=== PATIENT | female | born 1970 | race Native Hawaiian/Other Pacific Islander ===

== ENCOUNTER 2019-03-14 11:44 | Emergency (ER) | payer OTHER ==
[2019-03-14 12:20] VITALS: BP 181/109
--- NOTE | 2019-03-14 12:27 | Emergency Department Report ---
Blank Doc - Documentation Documentation: 48-year-old female that presents with urinary frequency, dehydration, and fati erica. Has not been taking Metformin. This initial assessment/diagnostic orders/clinical plan/treatment(s) is/are subject to change based on patient's health status, clinical progression and re-assessment by fellow clinical providers in the ED. Further treatment and workup at subsequent clinical providers discretion. Patient/guardians urged not to elope from the ED as their condition may be serious if not clinically assessed and managed. Initial orders include: 1- Patient sent to [facility] for further evaluation and treatment 2- labs 3- UA
[2019-03-14 13:56] LABS: Basophils # (Auto) 0.1 K/mm3 (0.0-0.1); Basophils % (Auto) 0.7 % (0.0-1.8); Eosinophils # (Auto) 0.1 K/mm3 (0.0-0.4); Eosinophils % (Auto) 1.4 % (0.0-4.3); Hematocrit 45.7 % (30.3-42.9); Lymphocytes # (Auto) 3.1 K/mm3 (1.2-5.4); Lymphocytes % (Auto) 38.6 % (13.4-35.0); Mean Corpuscular HGB Conc 33 % (30-34); Mean Corpuscular Volume 84 fl (79-97); Monocytes # (Auto) 0.4 K/mm3 (0.0-0.8); Monocytes % (Auto) 4.7 % (0.0-7.3); Platelet Count 261 K/mm3 (140-440); Red Blood Count 5.45 M/mm3 (3.65-5.03); Red Cell Distribution Width 13.8 % (13.2-15.2)
--- NOTE | 2019-03-14 14:00 | Emergency Department Report ---
ED General Adult HPI - General Chief complaint: Hyperglycemia Stated complaint: HBP/DIZZY/REF BY DOCTER Time Seen by Provider: 03/14/19 12:25 Source: patient Mode of arrival: Ambulatory Limitations: No Limitations - History of Present Illness Initial comments: Mrs. Hamilton is a 48 yo female who presents with fatigue, thirst for several weaks. Feels drained. Referred from PCP's office for BG [id number]. Stopped taking medication for DM and HTN in November because she was tired of taking pills. PCP Julia Guadalupe Chaffee -: Gradual, week(s) (3) Severity scale (0 -10): 0 Consistency: constant Improves with: none Worsens with: none Associated Symptoms: malaise Treatments Prior to Arrival: none - Related Data Previous Rx's Medication Instructions Recorded Last Taken Type Lisinopril/Hydrochlorothiazide 1 tab PO QDAY 90 Days #90 tab 03/14/19 Unknown Rx [Zestoretic 20-25 mg] metFORMIN [Glucophage] 500 mg PO BID 90 Days #180 tablet 03/14/19 Unknown Rx Allergies Allergy/AdvReac Type Severity Reaction Status Date / Time No Known Allergies Allergy Unverified 03/14/19 12:18 ED Review of Systems ROS: Stated complaint: HBP/DIZZY/REF BY DOCTER Other details as noted in HPI Comment: All other systems reviewed and negative Constitutional: malaise Respiratory: denies: cough, shortness of breath Cardiovascular: denies: chest pain Genitourinary: frequency ED Past Medical Hx - Past Medical History Previous Medical History?: Yes Hx Hypertension: Yes Hx Diabetes: Yes - Surgical History Past Surgical History?: Yes Additional Surgical History: hysterectomy - Family History Family history: diabetes, hypertension - Social History Smoking Status: Never Smoker Substance Use Type: Alcohol Other Social History: works in a [employer] - Medications Home Medications: Home Medications Medication Instructions Recorded Confirmed Last Taken Type Lisinopril/Hydrochlorothiazide 1 tab PO QDAY 90 Days #90 tab 03/14/19 Unknown Rx [Zestoretic 20-25 mg] metFORMIN [Glucophage] 500 mg PO BID 90 Days #180 tablet 03/14/19 Unknown Rx ED Physical Exam - General Limitations: No Limitations General appearance: alert, in no apparent distress - Head Head exam: Present: atraumatic, normocephalic - Eye Eye exam: Present: normal appearance - ENT ENT exam: Present: mucous membranes moist - Neck Neck exam: Present: normal inspection, full ROM - Respiratory Respiratory exam: Present: normal lung sounds bilaterally. Absent: respiratory distress, wheezes, rales, rhonchi - Cardiovascular Cardiovascular Exam: Present: regular rate, normal rhythm, normal heart sounds. Absent: systolic murmur, diastolic murmur, rubs, gallop - GI/Abdominal GI/Abdominal exam: Present: soft, normal bowel sounds. Absent: distended, tenderness, guarding, rebound - Extremities Exam Extremities exam: Present: normal inspection - Back Exam Back exam: Present: normal inspection - Neurological Exam Neurological exam: Present: alert, oriented X3 - Psychiatric Psychiatric exam: Present: normal affect, normal mood - Skin Skin exam: Present: warm, dry, intact, normal color. Absent: rash ED Course Vital Signs 03/14/19 12:15 Temperature 98.5 F Pulse Rate 85 Respiratory 18 Rate Blood Pressure 181/109 O2 Sat by Pulse 98 Oximetry ED Medical Decision Making - Lab Data Result diagrams: 03/14/19 13:22 03/14/19 13:22 Laboratory Results - last 24 hr 03/14/19 03/14/19 03/14/19 12:26 13:22 13:22 WBC 8.1 RBC 5.45 H Hgb 15.0 H Hct 45.7 H MCV 84 MCH 28 MCHC 33 RDW 13.8 Plt Count 261 Lymph % (Auto) 38.6 H Erie % (Auto) 4.7 Eos % (Auto) 1.4 Baso % (Auto) 0.7 Lymph # 3.1 Erie # 0.4 Eos # 0.1 Baso # 0.1 Seg Neutrophils % 54.6 Seg Neutrophils # 4.4 Sodium 138 Potassium 4.3 Chloride 98.0 Carbon Dioxide 23 Anion Gap 21 BUN 10 Creatinine 0.7 Estimated GFR > 60 BUN/Creatinine Ratio 14 Glucose 372 H POC Glucose 302 H Calcium 9.9 Total Bilirubin 0.30 AST 55 H ALT 61 H Alkaline Phosphatase 141 H Total Protein 8.0 Albumin 4.4 Albumin/Globulin Ratio 1.2 Urine Color Urine Turbidity Urine pH Ur Specific Gregory Urine Protein Urine Glucose (UA) Urine Ketones Urine Blood Urine Nitrite Urine Bilirubin Urine Urobilinogen Ur Leukocyte Esterase Urine WBC (Auto) Urine RBC (Auto) U Epithel Cells (Auto) Urine Mucus 03/14/19 13:42 WBC RBC Hgb Hct MCV MCH MCHC RDW Plt Count Lymph % (Auto) Erie % (Auto) Eos % (Auto) Baso % (Auto) Lymph # Erie # Eos # Baso # Seg Neutrophils % Seg Neutrophils # Sodium Potassium Chloride Carbon Dioxide Anion Gap BUN Creatinine Estimated GFR BUN/Creatinine Ratio Glucose POC Glucose Calcium Total Bilirubin AST ALT Alkaline Phosphatase Total Protein Albumin Albumin/Globulin Ratio Urine Color Yellow Urine Turbidity Clear Urine pH 5.0 Ur Specific Gregory 1.033 H Urine Protein <15 mg/dl Urine Glucose (UA) >=500 Urine Ketones Neg Urine Blood Neg Urine Nitrite Neg Urine Bilirubin Neg Urine Urobilinogen < 2.0 Ur Leukocyte Esterase Neg Urine WBC (Auto) < 1.0 Urine RBC (Auto) 2.0 U Epithel Cells (Auto) < 1.0 Urine Mucus Few - Medical Decision Making Acute hyperglycema and hypertensive urgency due to medication noncompliance. I provided extensive verbal and written education regarding diet and treatment of both DM and HTN. Her liver enzyme levels are elevated. Mrs. Bermudez showed me labs from last year with elevated ALT. I suspect fatty liver. I provided copy of her labs to take to her PCP. No evidence of DKA. I have prescribed her home medications Lisinopril, HTN, metformin 90 supply prescribed Critical care attestation.: If time is entered above; I have spent that time in minutes in the direct care o f this critically ill patient, excluding procedure time. ED Disposition Clinical Impression: Hyperglycemia due to type 2 diabetes mellitus, Hypertensive urgency Disposition: [id number] TO HOME OR SELFCARE Is pt being admited?: No Does the pt Need Aspirin: No Condition: Stable Instructions: Diabetes Mellitus Type 2 in Adults (ED), Hypertension (ED) Additional Instructions: Please take a copy of your laboratory values to your primary physician. Prescriptions: metFORMIN [Glucophage] 500 mg PO BID 90 Days #180 tablet Lisinopril/Hydrochlorothiazide [Zestoretic 20-25 mg] 1 tab PO QDAY 90 Days #90 tab Referrals: GALDINO CHANCE MD [Referring] - 3-5 Days Forms: Work/School Release Form(ED)
[2019-03-14 14:13] LABS: Bilirubin,Urine NEG (Negative); Blood,Urine NEG (Negative); Color,Urine Yellow (Yellow); Mucus,Urine FEW /HPF; Protein,Urine <15 mg/dL mg/dL (Negative); Urobilinogen,Urine < 2.0 mg/dL (<2.0); WBC,Urine < 1.0 /HPF (0.0-6.0)
[2019-03-14 14:15] LABS: Alanine Aminotransferase 61 units/L (7-56); Albumin 4.4 g/dL (3.9-5); BUN/Creatinine Ratio 14; Blood Urea Nitrogen 10 mg/dL (7-17); Calcium 9.9 mg/dL (8.4-10.2); Hemolysis Index 35
== END 2019-03-14 15:35 | disposition home or self-care (01) ==
LOC: ED 11:44
DX: E11.65 Type 2 diabetes mellitus with hyperglycemia (principal); I10 Essential (primary) hypertension
CPT/HCPCS: 36415; 80053; 81001; 82962; 85025